=== PATIENT | female | born 1935 | race Caucasian/White ===

== ENCOUNTER → 2018-02-20 | Outpatient (CLI) | payer MEDICARE, BC ==
[~2018-02-20] MED LIST: ASPIRIN E.C. 8181 MG PO; BETAMETHASONE D TP; BIOTIN1 MG PO; CARDI-OMEGA1000 MG PO; DOXYCYCLINE 50M50 MG PO; ESTRACE0.1 MG/GM VG; FML 5 ML5 ML OP; LIPITOR 10MG10 MG PO; LUETIN PO; MULTIPLE VITAMI1 CAP PO; SYSTANE 3%-94%1 OIN OP; VITAMIN D31000 I1 PO
== END ==
LOC: MC.RAD 09:34
DX: Z12.31 Encounter for screening mammogram for malignant neoplasm of breast (principal)

== ENCOUNTER 2021-11-16 16:03 | Emergency (ER) | payer MEDICARE, BC ==
[~2021-11-16] VITALS: Ht 170.2 cm; Wt 77.3 kg
[2021-11-16 18:09] LABS: BASO % 0.6 % (0.0-2.0); EOS % 0.3 % (0.0-4.0); GRAN # 5.2 K/mm3 (1.4-6.5); GRAN % 78.9 % (42.2-75.2); HEMATOCRIT 47.6 % (37.0-47.0); HEMOGLOBIN 15.7 g/dl (12.5-16.0); LYMPH # 0.8 K/mm3 (1.2-3.4); LYMPH % 11.4 % (20.0-51.0); MEAN CELL VOLUME 91 fl (80.0-100.0); MEAN CORPUSCULAR HEMOGLOBIN 30 pg (27-31); MEAN CORPUSCULAR HGB CONC 33 g/dl (33.0-37.0); MEAN PLATELET VOLUME 10.4 fl (7.4-10.4); MONO # 0.6 K/mm3 (0.1-0.6); MONO % 8.6 % (1.7-9.3); PLATELET COUNT 168 K/mm3 (130-400); RED BLOOD COUNT 5.25 M/mm3 (4.10-5.30); REDCELL DISTRIBUTION WIDTH-CV 13.8 % (11.5-14.5)
[2021-11-16 18:26] LABS: CALCIUM 9.2 mg/dL (8.4-10.2); CREATININE, serum 0.92 mg/dL (0.57-1.11); PHOSPHOROUS 3.5 mg/dL (2.3-4.7); POTASSIUM 4.4 mmol/L (3.5-4.5)
[2021-11-16 19:19] LABS: COLLECTION METHOD CATHETER
[2021-11-16 19:24] LABS: PH 6 (5-8); URINE APPEARANCE Clear (CLEAR/HAZY); URINE BILIRUBIN Positive (NEGATIVE); URINE BLOOD 2+ (NEGATIVE); URINE COLOR Yellow (YELLOW); URINE GLUCOSE Negative (NEGATIVE); URINE KETONE 1+ (NEGATIVE); URINE LEUKOCYTE ESTERASE Negative (NEGATIVE); URINE NITRATE Negative (NEGATIVE); URINE PROTEIN(semi-quant) 1+ (NEGATIVE)
[2021-11-16 19:29] LABS: MUCOUS Present (NOT PRESENT); SQUAMOUS EPITHELIAL None Seen /hpf (0-10); URINE BACTERIA None Seen /hpf (NONE SEEN)
[2021-11-16] MEDS ORDERED: TYLENOL SU650 MG/SUP RC (19:36)
[2021-11-16] MEDS ORDERED: ATIVAN 1MG T1 MG/TAB PO ×2 (19:37→19:38)
[2021-11-16] MEDS ORDERED: ARICEPT 5MG PO (19:37)
[2021-11-16] MEDS ORDERED: DEPAKOTE 250MG250 MG PO (19:39)
[2021-11-16] MEDS ORDERED: GENTLE LAXATIVE10 MG RC (19:39)
[2021-11-16] MEDS ORDERED: ATIVAN 0.50.5 MG/TAB PO (19:40)
[2021-11-16] MEDS ORDERED: ANTI-DIARRHEAL2 MG PO (19:40)
[2021-11-16] MEDS ORDERED: MELATONIN5 M1 PO (19:41)
[2021-11-16] MEDS ORDERED: MILK OF MA400 MG/52 PO (19:41)
[2021-11-16] MEDS ORDERED: MYLANTA MAXIMU355 M1 PO (19:42)
[2021-11-16] MEDS ORDERED: SEROQUEL 2525 MG/TAB PO (19:43)
[2021-11-16] MEDS ORDERED: TYLENOL 325MG325 MG PO (19:44)
[2021-11-16] MEDS ORDERED: ULTRAM 50MG TAB50 MG PO (19:44)
[2021-11-16] MEDS ORDERED: SEROQUEL50 MG PO (19:45)
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
--- NOTE | 2021-11-17 11:27 | NUR ---
The patient's daughter, April, contacted this SIMONE. She states that she has been in contact with Roselia at [facility]. She states that [facility] would need an order to admit from the patient's PCP, but Dr. Escamilla is out today. [facility] was going to see if the on-call doctor, Dr. Dominguez, for Dr. Escamilla would sign orders. April states that [facility] would also have to come and screen the patient. SIMONE contacted Roselia at [facility] to follow up on the above. Roselia confirms the above. She states that she is going to try and get one of their nurses to come up to the hospital today to screen the patient. She states that they are extremely busy and she will see what they can do. She requested updates. SIMONE to fax updates to [facility].
--- NOTE | 2021-11-17 11:58 | NUR ---
SIMONE contacted Izzy, with Dr. Dominguez, to follow up and update about the patient's situation. She states that she has been in contact with the patient's daughter and was going to try and get in touch with with Roselia at [facility]. Izzy reports that she will bring the information that SIMONE provided to her to Dr. Dominguez and see about getting orders to admit to [facility] today. SIMONE provided her with [facility]' fax number.
--- NOTE | 2021-11-17 13:09 | NUR ---
Izzy Rehman with [facility] is here to screen the patient. She had some additional questions for SW about the patient's situation at [facility]. SW answered all questions. Izzy states that she will meet with her team now to decide if they can meet the patient's needs or not and they will get back to this SW.
--- NOTE | 2021-11-17 15:52 | NUR ---
The patient's daughter, April, contacted SIMONE. April reports that [facility] did receive orders to admit from [facility]. She reports that the owners of [facility] have to still approve the transfer and they are hoping to get this by the end of the day. April reports that [facility] informed them that the transfer would not be able to happen today, since the owners have not approved it yet. SIMONE attempted to contact Roselia or Izzy at [facility] multiple times to confirm this. SIMONE left them a voicemail. SIMONE contacted and updated Mariajose at [facility]. Mariajose reports that they are on standbye too and have not heard anything more from [facility]. Roselia, at [facility], then contacted SIMONE back. She reports that they are able to accept the patient tomorrow. They request a transport time tomorrow at 1430. SIMONE updated Mariajose at [facility]. SIMONE contacted and updated the patient's daughter, April. April is in agreement to the plan and thanked this SIMONE. SIMONE updated the patient's ED RN.
[2021-11-17 22:01] VITALS: TEMP 97.8
--- NOTE | 2021-11-18 09:29 | NUR ---
The patient is to discharge today, 11/18, to [facility] on hospice from [facility]. Transportation was scheduled around 1430, via [facility]. SIMONE informed the patient's , the RN, Mariajose at [facility] of the transport time. SIMONE left a message with Roselia at [facility] with transport time. The patient's , Geronimo, gave SIMONE verbal consent to sign the EMS consent form on his behalf. No additional needs at this time.
[2021-11-18 14:40] VITALS: BP 170/84; PULSE 80
== END 2021-11-18 14:40 ==
LOC: COL.ER 16:03
PROVIDERS: Emergency Medicine
DX: G30.0 Alzheimer's disease with early onset (principal); F02.81 Dementia in other diseases classified elsewhere, unspecified severity, with behavioral disturbance; E86.0 Dehydration; Z20.822 Contact with and (suspected) exposure to COVID-19
CPT/HCPCS: J7030